=== PATIENT | male | born 1990 | race Two or more races ===

== ENCOUNTER 2018-08-10 18:09 | Emergency (ER) | payer OTHER ==
--- NOTE | 2018-08-10 19:53 | EDPHY ---
H & P Stated Complaint: slipped on stairs fell scalp lac/denies loc or neck pain - Personal History Current Tetanus Diphtheria and Acellular Pertussis (TDAP): Yes - Medical/Surgical History Hx Asthma: No Hx Chronic Respiratory Disease: No Hx Diabetes: No Hx Cardiac Disease: No Hx Renal Disease: No Hx Cirrhosis: No Hx Alcoholism: No Hx HIV/AIDS: No Hx Splenectomy or Spleen Trauma: No Other PMH: denies - Social History Smoking Status: Never smoked Time Seen by Provider: 08/10/18 19:26 HPI/ROS: CHIEF COMPLAINT: Occipital head injury HISTORY OF PRESENT ILLNESS: 27-year-old immunocompetent male with no anticoagulant use history via private vehicle complaining of head injury. Occurred shortly prior to arrival. States that he was running down stairs, slipped and fell impacted his occipital head against the stairs. No loss of consciousness. He is complaining of headache. Denies midline C-spine pain. Denies peripheral paresthesia, weakness, numbness. Denies nausea or vomiting. REVIEW OF SYSTEMS: 10 systems reviewed and negative with the exception of the elements mentioned in the history of present illness PAST MEDICAL/SURGICAL HISTORY: no anticoagulant use, no relevant medical/ surgical history. Tetanus up-to-date SOCIAL HISTORY: denies alcohol use at time of incident PHYSICAL EXAM 1) GENERAL: Well-developed, well-nourished, alert and oriented. Appears to be in no acute distress. Answering questions appropriately. 2) HEAD: Normocephalic, 5 cm occipital laceration 3) HEENT: Pupils equal, round, reactive to light bilaterally. Negative Horn[place]. Nasopharynx, oropharynx, clear. No deformity or angulation of nose. No septal hematoma. No rhinorrhea. No oral trauma. Ears bilaterally with normal tympanic membranes. No hemotympanum. No fluid or blood in the external auditory canal. No raccoon eyes. No Deal sign. Teeth are normally aligned with no gross malocclusion, TMJ bilaterally nontender, facial bones nontender including the zygomatic arch, maxilla mandible. 4) NECK: No cervical collar is on. Posterior cervical spine is nontender, no stepoff, no effusion. Full range of motion which does not elicit any midline cervical spine pain, no posterior midline tenderness, no step-off. 5) LUNGS: Clear to auscultation bilaterally, no wheezes, no rhonchi, no retractions. No obvious signs of trauma. No chest wall pain. No flaring, no grunting. Moving symmetrically. No crepitus. 6) HEART: [Regular rate and rhythm, 7) ABDOMEN: No guarding, no rebound, no focal tenderness, no peritoneal signs, no signs of trauma, no ecchymosis 8) MUSCULOSKELETAL: Moving all extremities, no focal areas of tenderness, no obvious trauma. 9) BACK: No midline vertebral tenderness, no fluctuance, no step-off, no obvious trauma, no visual or palpable abnormality. 10) SKIN: No laceration. No abrasion 11) NEURO: Awake, alert, and oriented to person, place and time. Answers questions appropriately. There were no obvious focal neurologic abnormalities. No cerebellar dysfunction. Cranial nerves 2 through to 12 intact. Normal steady gait. Upper and lower extremities bilaterally with strength 5 / 5, reflexes 2+. DIFFERENTIAL DIAGNOSIS: Not necessarily in any particular order, my differential diagnosis includes, but is not limited to, concussion, skull fracture, intraparenchymal contusion, subarachnoid, subdural and epidural hematoma. The patient understands that this diagnosis is provisional and can never be 100% accurate. (Jairo Hastings) Constitutional: Initial Vital Signs Temperature (C) 37 C 08/10/18 18:23 Heart Rate 78 08/10/18 18:23 Respiratory Rate 18 08/10/18 18:23 Blood Pressure 142/91 H 08/10/18 18:23 O2 Sat (%) 95 08/10/18 18:23 O2 Delivery Mode Room Air Allergies/Adverse Reactions: No Known Allergies Allergy (Unverified 08/10/18 18:23) Home Medications: Medication Instructions Recorded NK [No Known Home Meds] 08/10/18 Medical Decision Making Procedures: Procedure: Laceration repair. I explained the indications, risks and benefits for both laceration repair and anesthetic administration. Verbal consent was obtained from the patient. The laceration on the occipital scalp was anesthetized using 0.5% bupivicaine with epinephrine . After anesthetic administered the patient was observed for a period of time and had no apparent adverse effects. The wound was cleaned, prepped, draped in normal sterile fashion and explored to its base. No foreign body seen, no foreign bodies palpated. There were no deep structures involved. No galea defects identified The wound was repaired with 15 denise. The wound repair was complex. The procedure was performed by myself. Patient has been informed that scarring will occur, although efforts have been made to minimize this. (Jairo Hastings) ED Course/Re-evaluation: 7:50 p.m.: Head CT ordered in this patient for trauma for the following indication: severe headache. Negative [place] C-spine decision-making tool. Will hold on imaging the C-spine at this time. Care of patient under supervision of secondary supervising physician Dr Delvalle . 8:11 p.m..: Informed the patient that he is declining imaging studies. Warned of the risks of declining this including but not limited to , permanent chronic disability. He Verbalized understanding of this. I believe him to have decision-making capacity. Patient feels comfortable being discharged. All questions and concerns addressed by myself. Patient given my usual and customary discharge precautions and instructions regarding their clinical impression. (Jairo Hastings ) Other Provider: The patient was evaluated and managed by the Physician [employer]. My co- signature indicates that I have reviewed this chart and I agree with the findings and plan of care as documented. I am the secondary supervising physician. (Le Delvalle) Departure - Departure Disposition: Home, Routine, Self-Care Clinical Impression: Head injury due to trauma Occipital scalp laceration Qualifiers: Encounter type: initial encounter Qualified Code(s): S01.01XA - Laceration without foreign body of scalp, initial encounter Condition: Good Instructions: Laceration (ED) Additional Instructions: ALTHOUGH THERE IS NO EVIDENCE OF SERIOUS HEAD INJURY AT THIS TIME, DELAYED SIGNS CAN APPEAR 24 TO 48 HOURS AFTER INJURY. PLEASE RETURN TO THE EMERGENCY DEPARTMENT (ED) IMMEDIATELY IF YOU HAVE INCREASED HEADACHE, PERSISTENT HEADACHE , VOMITING, WEAKNESS, CONFUSION OR VISUAL PROBLEMS. WE RECOMMEND THAT YOU DO NOT RESUME CONTACT SPORTS OR ACTIVITIES THAT TAKE COORDINATION OR BALANCE SUCH SKIING OR RIDING A BICYCLE UNTIL CLEARED TO DO SO BY YOUR DOCTOR OR BY A NEUROLOGIST. Referrals: Return, to the ER in 7 days for staple removal [Other] - As per Instructions
[2018-08-10 20:33] VITALS: BP 136/70
== END 2018-08-10 20:33 | disposition home or self-care (01) ==
PROC: 0HQ0XZZ Repair Scalp Skin, External Approach (ICD-10-PCS; principal; 2018-08-10)
DX: S01.01XA Laceration without foreign body of scalp, initial encounter (principal); W10.8XXA Fall (on) (from) other stairs and steps, initial encounter; Y93.02 Activity, running